=== PATIENT | female | born 1935 | race Caucasian/White ===

== ENCOUNTER 2021-08-03 13:20 | Emergency (ER) | payer MEDICARE, SELFPAY ==
[2021-08-03 14:36] VITALS: BP 149/71; PULSE 63; RESP 16; TEMP 36.7; O2SAT 100
--- NOTE | 2021-08-03 15:47 | ED.URI ---
HPI - URI/Sore Throat General Chief Complaint: Upper Respiratory Infection Stated Complaint: sob Time Seen by Provider: 08/03/21 15:47 Source: patient and RN notes reviewed Mode of arrival: ambulatory Limitations: no limitations History of Present Illness HPI Narrative: 86-year-old female presents concern for cough, shortness of breath, wheezing. Caregiver reports symptoms worsen when she is around animals. Reports history of similar problems in the past. Denies current shortness of breath. Denies fever, bodies, chills, sweats. Denies any at home intervention. MD elicited complaint: cough Related Data Allergies Allergy/AdvReac Type Severity Reaction Status Date / Time No Known Allergies Allergy Verified 08/03/21 14:47 Review of Systems Review of Systems: CONSTITUTIONAL: Denies malaise, chills, sweats, or fever. EYES: Denies visual changes, redness, or discharge. ENT: Reports rhinorrhea, congestion. Denies sinus pain, otalgia and sore throat. CARDIOVASCULAR: Denies chest pain, palpitations, or edema. RESPIRATORY: Reports cough, occasional wheezing and dyspnea. GASTROINTESTINAL: Denies abdominal pain, nausea, vomiting, diarrhea SKIN: Denies rash or itching. MUSCULOSKELETAL: Denies myalgia. NEUROLOGIC: Denies headache. All systems reviewed & are unremarkable except as noted in HPI and below PMFSH Comments At time of signature, agree with nursing past medical, surgical, social and family history. There is no relevant family history pertinent to the presenting complaint Exam Narrative: GENERAL: Well-appearing, well-nourished, and in no acute distress. HEAD: Normocephalic EYES: PERRLA, conjunctivae clear ENT: Nares clear, clear discharge. Mucous membranes moist. TM pearly thompson with dull light reflex bilaterally; no tragal tenderness. Oropharynx not erythematous without lesions. Tonsils not enlarged and without exudate, no drooling, no hoarseness, no trismus, uvula midline. NECK: Supple. No lymphadenopathy CHEST: Mild scattered rhonchi, otherwise clear to auscultation, breath sounds equal. No wheezing, rales, or stridor. No respiratory distress, speaks in full sentences. Cough noted HEART: Regular rate and rhythm. No murmur heard. SKIN: Warm, dry, no rash. NEURO: Alert and oriented x3. PSYCH: Normal mood and affect Course Course Emergency Course: Patient is aware of diagnosis, understands and agrees to treatment plan. Anticipatory guidance given. Patient agrees to follow-up as directed and is aware of reasons to seek care at the emergency department. Portions of this record may have been created with voice recognition software Vital Signs Vital signs: Vital Signs Temperature 98.1 F 08/03/21 14:36 Pulse Rate 63 08/03/21 14:36 Respiratory Rate 16 08/03/21 14:36 Blood Pressure 149/71 H 08/03/21 14:36 Pulse Oximetry 100 08/03/21 14:36 Temperature 98.1 F 08/03/21 14:36 Pulse Rate 63 08/03/21 14:36 Respiratory Rate 16 08/03/21 14:36 Blood Pressure 149/71 H 08/03/21 14:36 Pulse Oximetry 100 08/03/21 14:36 Reviewed. MDM - URI/Sore Throat MDM Narrative Medical decision making narrative: Differential diagnosis considered: Villa virus, strep pharyngitis, allergic rhinitis, upper respiratory tract infection, sinusitis, rhinosinusitis, nasopharyngitis. viral pharyngitis, otitis media, otitis externa, pneumonia, bronchitis, viral cough syndrome, viral syndrome, and influenza. Exam findings show no acute concerns or changes; patient is non-toxic appearing and is in no distress. Patient is appropriate for outpatient treatment and follow-up. Lab Data Attestation: I reviewed the patient's lab results. Critical Care Time Critical Care Time Critical Care Time: No Discharge Plan Discharge Clinical Impression: Upper respiratory infection with cough and congestion Patient Disposition: Home, Self-Care Condition: Stable Instructions: Antibiotic Form Additional Instructions: Recommend a
== END 2021-08-03 15:58 | disposition home or self-care (01) ==
PROVIDERS: Emergency Provider Nurse Practitioner
DX: J06.9 Acute upper respiratory infection, unspecified (principal); R05.9 Cough, unspecified; E78.00 Pure hypercholesterolemia, unspecified
CPT/HCPCS: 99213; G0463

== ENCOUNTER 2022-03-08 14:56 | Outpatient (CLI) | payer MEDICARE, SELFPAY ==
[2022-03-08 19:01] LABS: Basophils Absolute Auto 0.1 K/mm3 (0.0-0.1); Basophils Percent Auto 0.9 % (0.2-1.2); Eosinophils Absolute Auto 0.3 K/mm3 (0-0.3); Eosinophils Percent Auto 4.2 % (0-4.4); Hemoglobin 13.4 g/dL (12.0-15.0); Immature Granulocyte Absolute 0.02 K/mm3 (0.00-0.031); Immature Granulocyte Percent A 0.3 % (0-0.5); Lymphocytes Absolute Auto 2.04 K/mm3 (0.9-3.2); Lymphocytes Percent Auto 31.8 % (18.3-44.2); Mean Corpuscular HGB Conc 32.7 g/dl (32-36); Mean Corpuscular Hemoglobin 31.1 pg (26-34); Mean Corpuscular Volume 95.1 fl (80-100); Mean Platelet Volume 9.7 fl (7.4-10.4); Monocytes Absolute Auto 0.5 K/mm3 (0.1-0.6); Monocytes Percent Auto 7.6 % (2.6-8.5); Neutrophils Absolute Auto 3.5 K/mm3 (1.3-6.7); Neutrophils Percent Auto 55.2 % (45.5-73.1); Platelet Count Result 387 k/mm3 (150-375); Red Blood Count 4.31 M/mm3 (4.2-5.4); Red Cell Distribution Width 13.4 % (11.5-14.5); White Blood Count 6.4 K/mm3 (4.5-10.0)
[2022-03-08 19:40] LABS: Alanine Aminotransferase 11 U/L (6-35); Albumin Level 4.2 g/dL (3.5-5.1); Alkaline Phosphatase 65 U/L (38-126); Anion Gap 9 mmol/L (8-16); Aspartate Amino Transferase 24 U/L (14-36); Bilirubin,Total 1.2 mg/dL (0.2-1.3); Blood Urea Nitrogen 14 mg/dL (7-17); Calcium 10.1 mg/dL (8.4-10.2); Carbon Dioxide 29 mmol/L (22-30); Chloride 101 mmol/L (98-107); Cholesterol 195 mg/dL (0-200); Estimated Glomerular Filt Rate 53; Glucose 122 mg/dL (65-110); HDL Direct 48 mg/dL; Sodium 139 mmol/L (137-145); Triglycerides 149 mg/dL (<150)
[2022-03-08 20:03] LABS: Free T4 Free Thyroxine 1.17 ng/mL (0.78-2.19); Vitamin D 25 Hydroxy 35.2 ng/mL
[2022-03-08 20:06] LABS: LDL Cholesterol Direct 101 mg/dL
== END 2022-03-08 14:57 | disposition home or self-care (01) ==
PROVIDERS: PCP Family Medicine; Visit Provider Family Medicine
DX: R41.3 Other amnesia (principal); Z13.220 Encounter for screening for lipoid disorders; E55.9 Vitamin D deficiency, unspecified; R73.9 Hyperglycemia, unspecified
CPT/HCPCS: 36415; 80053; 80061; 82306; 82607; 83036; 84439; 84443; 85025

== ENCOUNTER 2022-03-19 14:25 | Outpatient (CLI) | payer MEDICARE, SELFPAY ==
--- NOTE | ~2022-03-19 | MR_ITS ---
EXAMINATION: MR brain/brain stem wo/w con DATE: 03/19/2022 15:30 INDICATION: Memory loss. Cognitive impairment. TECHNIQUE: Magnetic resonance imaging (MRI) of the brain and brainstem was performed without and with 12 mL MultiHance intravenous contrast. COMPARISON: None. FINDINGS: There are small foci of old hemorrhage in right frontal lobe and right occipital lobe. Ther e are scattered areas of nonspecific increased T2-weighted signal intensity in the cerebral white mat ter, which is within normal limits for the patient's age. There is no acute ischemic infarct or abnor mal mass lesion. The ventricles are normal in size. The orbits are normal. The paranasal sinuses are clear. There is a trace right mastoid effusion. IMPRESSION: 1. Small foci of old hemorrhage in right frontal lobe and right occipital lobe, which is nonspecific, but may be seen with amyloid angiopathy. Reviewed, dictated and finalized at location A.
== END 2022-03-19 14:26 | disposition home or self-care (01) ==
PROVIDERS: PCP Family Medicine; Visit Provider Family Medicine
DX: R41.89 Other symptoms and signs involving cognitive functions and awareness (principal); R93.0 Abnormal findings on diagnostic imaging of skull and head, not elsewhere classified
CPT/HCPCS: 70553; A9577

== ENCOUNTER 2022-05-10 15:59 | Outpatient (CLI) | payer MEDICARE, SELFPAY ==
[2022-05-10 19:06] LABS: Basophils Percent Auto 0.6 % (0.2-1.2); Eosinophils Absolute Auto 0.3 K/mm3 (0-0.3); Hematocrit 36.7 % (37.0-47.0); Immature Granulocyte Absolute 0.02 K/mm3 (0.00-0.031); Immature Granulocyte Percent A 0.3 % (0-0.5); Lymphocytes Absolute Auto 2.01 K/mm3 (0.9-3.2); Lymphocytes Percent Auto 30.6 % (18.3-44.2); Mean Corpuscular HGB Conc 32.7 g/dl (32-36); Mean Corpuscular Hemoglobin 31.3 pg (26-34); Mean Corpuscular Volume 95.8 fl (80-100); Monocytes Absolute Auto 0.5 K/mm3 (0.1-0.6); Neutrophils Absolute Auto 3.8 K/mm3 (1.3-6.7); Neutrophils Percent Auto 57.5 % (45.5-73.1); Platelet Count Result 479 k/mm3 (150-375); Red Blood Count 3.83 M/mm3 (4.2-5.4); White Blood Count 6.6 K/mm3 (4.5-10.0)
[2022-05-10 20:23] LABS: Alanine Aminotransferase 23 U/L (6-35); Albumin Level 3.9 g/dL (3.5-5.1); Alkaline Phosphatase 123 U/L (38-126); Anion Gap 10 mmol/L (8-16); Aspartate Amino Transferase 44 U/L (14-36); Bilirubin,Total 0.5 mg/dL (0.2-1.3); Blood Urea Nitrogen 14 mg/dL (7-17); Carbon Dioxide 29 mmol/L (22-30); Chloride 102 mmol/L (98-107); Estimated Glomerular Filt Rate 53; Glucose 111 mg/dL (65-110); Sodium 141 mmol/L (137-145)
== END 2022-05-10 16:00 | disposition home or self-care (01) ==
PROVIDERS: PCP Family Medicine; Visit Provider Family Medicine
DX: R50.9 Fever, unspecified (principal)
CPT/HCPCS: 36415; 80053; 85025

== ENCOUNTER 2022-05-14 15:18 | Outpatient (NON) | payer MEDICARE, SELFPAY ==
[2022-05-14 19:10] LABS: Add Urine Microscopic? YES; Amorphous Sediment Urine Few; Appearance Urine Turbid (Clear); Bacteria Urine Trace /hpf; Bilirubin Urine Negative (Negative); Blood Urine Negative (Negative); Color Urine Yellow (Yellow); Glucose Urine UA Negative (Negative); Ketones Urine Negative (Negative); Leukocyte Esterase Ur Negative LEU/UL (NEGATIVE); Mucus Urine Rare /lpf; Nitrate Urine Negative (Negative); Protein Urine 1+ mg/dL (Negative); Specific Grav Ur 1.011 (1.001-1.035); Squamous Epithelial Cell Urine Rare /hpf (Few); Urobilinogen Urine Negative mg/dL (<2.0); WBC Urine 0-3 /hpf (0-3)
== END 2022-05-14 15:19 | disposition home or self-care (01) ==
PROVIDERS: PCP Family Medicine; Visit Provider Family Medicine
DX: R50.9 Fever, unspecified (principal)
CPT/HCPCS: 81001

== ENCOUNTER 2022-11-09 17:29 | Emergency (ER) | payer MEDICARE, SELFPAY ==
[2022-11-09 17:39] VITALS: BP 180/73; PULSE 56; RESP 16; TEMP 36.4; O2SAT 100
--- NOTE | 2022-11-09 17:47 | ED.URI ---
HPI - URI/Sore Throat General Chief Complaint: Upper Respiratory Infection Stated Complaint: SORE THROAT/SWOLLEN LYMPH NODES Time Seen by Provider: 11/09/22 17:47 Source: patient Mode of arrival: ambulatory Limitations: no limitations History of Present Illness HPI Narrative: 87 yo F presents with nephew with c/o nasal congestion, sinus pressure, sore throat, mild cough. Nephew reports that pt has chronic sinusitis. Uses flonase and an OTC antihistamine. Pt stating cant breathe through my nose today . Also c/o sore throat. afebrile. Well appearing and talkative. hx of dementia. A&O x 2 to 3. Neg home covid test. Did teledoc visit and teledoc felt pt needed a strep test. All systems reviewed and negative except as noted above. Related Data Allergies Allergy/AdvReac Type Severity Reaction Status Date / Time No Known Allergies Allergy Verified 11/09/22 17:36 Review of Systems Review of Systems: CONSTITUTIONAL: Denies fever, chills, or sweats. EYES: Denies visual changes, redness, or discharge. ENT: Reports rhinorrhea, congestion, sore throat. Denies otalgia. CARDIOVASCULAR: Denies chest pain, palpitations, or edema. RESPIRATORY: Reports cough. Denies dyspnea. GASTROINTESTINAL: Denies abdominal pain, nausea, vomiting, or diarrhea. GENITOURINARY: Denies dysuria or hematuria. SKIN: Denies rash or itching. MUSCULOSKELETAL: Denies back pain, joint pain, or myalgia. NEUROLOGIC: Denies headache, numbness, or weakness. PSYCHIATRIC: Denies anxiety or depression. All other systems reviewed are negative, except as documented in HPI. [facility] Surgical History Surgical History History of cholecystectomy Family History Family History Mother Cancer of esophagus Stomach cancer Social History Social History Smoking status: Never smoker Alcohol intake: never Substance use: never Living arrangements: with friend(s) Gender identity (if verbalized by the patient): Female Comments At time of signature, agree with nursing past medical, surgical, social and family history. There is no relevant family history pertinent to the presenting complaint. Exam Narrative: GENERAL: This is a well-nourished, well-developed patient, in no apparent distress. HEAD: normocephalic, atraumatic. EYES: PERRL. Sclera clear/white. Vision is grossly intact. EARS: External ears normal, auditory canals clear and without drainage, TMs normal without perforation. Hearing grossly intact. NOSE: External nose normal with clear nasal drainage, mild congestion. Bilateral maxillary sinus tenderness on palpation. THROAT: Mucous membranes moist, mild erythema to posterior pharynx. No swelling or exudates. NECK: Neck supple, non-tender without lymphadenopathy, masses or thyromegaly. CARDIOVASCULAR: Regular rate and rhythm without murmurs, gallops, or rubs. RESPIRATORY: Clear to auscultation. Breath sounds equal bilaterally. No wheezes, rales, or rhonchi. SKIN: warm, Dry, intact with no suspicious lesions or rash, good texture and turgor. NEURO: awake, alert, and oriented to person, place and time. There were no obvious focal neurologic abnormalities. EXTREMITIES: No joint tenderness, effusion, or edema noted. Course Course Level of Care: Express Care Visit Vital Signs Vital signs: Vital Signs Temperature 36.4 C L 11/09/22 17:39 Pulse Rate 56 L 11/09/22 17:39 Respiratory Rate 16 11/09/22 17:39 Blood Pressure 180/73 H 11/09/22 17:39 Pulse Oximetry 100 11/09/22 17:39 Temperature 36.4 C L 11/09/22 17:39 Pulse Rate 56 L 11/09/22 17:39 Respiratory Rate 16 11/09/22 17:39 Blood Pressure 180/73 H 11/09/22 17:39 Pulse Oximetry 100 11/09/22 17:39 Reviewed MDM - URI/Sore Throat MDM Narrative Medical decision making narrative: Patient is aware of diagn
== END 2022-11-09 18:13 | disposition home or self-care (01) ==
PROVIDERS: Emergency Provider Nurse Practitioner Family
DX: J01.90 Acute sinusitis, unspecified (principal); B96.89 Other specified bacterial agents as the cause of diseases classified elsewhere
CPT/HCPCS: 87081; 87880; 99213; G0463

== ENCOUNTER 2023-11-11 12:23 | Emergency (ER) | payer MEDICARE, SELFPAY ==
--- NOTE | ~2023-11-11 | XR_ITS ---
Clinical Indication: Cough PA and lateral views of the chest: Comparison: None Findings: The lungs are clear, without evidence of focal consolidation or pleural effusion. Cardiome diastinal silhouette is within normal limits. Bones and soft tissues are unremarkable. Impression: Normal chest. Reviewed, dictated and finalized at location . Impression: Normal chest.
[2023-11-11 12:27] VITALS: BP 166/71; PULSE 64; RESP 16; TEMP 37.3; O2SAT 97
--- NOTE | 2023-11-11 12:33 | ED.URI ---
HPI - URI/Sore Throat General Chief Complaint: Upper Respiratory Infection Stated Complaint: Sore Throat/Congestion Time Seen by Provider: 11/11/23 12:33 Source: patient, RN notes reviewed and old records reviewed Mode of arrival: ambulatory Limitations: no limitations History of Present Illness HPI Narrative: 88-year-old female Express Care for complaint of non productive cough for nearly 2 weeks. patient presents with her grandson. Grandson endorses a patient history of memory issues. During exam, patient is a poor historian. Patient and grandson denie fever, shortness breath, chest pain. Patient denies ear pain, headache or any other complaints at time of exam. Patient able to speak in full sentences. Patient able to tolerate fluids by mouth. No signs of distress. Related Data Allergies Allergy/AdvReac Type Severity Reaction Status Date / Time No Known Allergies Allergy Verified 11/11/23 12:29 Review of Systems Review of Systems: All systems reviewed & are unremarkable except as noted in HPI and below Constitutional: Constitutional: Reports as per HPI and Denies fever(s) Eyes: Eyes: Reports no additional eye complaints ENT: Reports as per HPI, Denies otalgia, Denies headache(s) and Denies sore throat Cardiovascular: Cardiovascular: Reports no additional cardiovascular complaints, Denies chest pain and Denies dyspnea Respiratory: Respiratory: Reports no additional respiratory complaints, Reports cough ( Nonproductive per patient) and Denies dyspnea Musculoskeletal: Musculoskeletal: Reports no additional musculoskeletal complaints Neurologic: Reports system reviewed and no additional complaints, except as documented Psychiatric: Psychiatric: Reports no additional psychiatric complaints [facility] Surgical History Surgical History History of cholecystectomy Family History Family History Mother Cancer of esophagus Stomach cancer Social History Social History Smoking status: Never smoker Alcohol intake: never Substance use: never Lack of Transportation: No Lack of Food: Never True Current Housing: I Have Housing Concerned About Future Housing: No Difficulty Paying Gas/Electric Bills: No Difficulty Paying for Meds: No Currently Unemployed: No Education: High School Diploma/GED Difficulty w/ Childcare or Family Care: No Living arrangements: with friend(s) Gender identity (if verbalized by the patient): Female Comments At the time of my signature, I reviewed and agree with the nursing past medical, surgical, social, and family history. There is no relevant family history pertinent to the patient complaint. Exam Const: General: cooperative, healthy appearing, comfortable, no acute distress, alert and well nourished Nutritional Appearance: well nourished Orientation/consciousness: patient oriented x3 Limitations: no limitations HENMT: Head: normal to inspection Ears: Abnormal EAC present cerumen impaction bilateral, external ear abnormal and unable to visualize TM bilaterally Face/Nose/Sinus: Normal external nose present, Normal nares present, normal facial exam, No erythema and No edema Face and sinus: normal facial exam, no erythema and no edema Mouth: Yes Normal oral and palatal mucosa present Throat: tonsils normal, uvula midline, postnasal drainage and no uvular edema Eyes: General: appearance normal, both eyes and all related structures Neck: Neck: normal visual inspection, full ROM and no meningeal signs Lymphatic: no lymphadenopathy noted and no lymphedema noted Chest: Chest palpation & inspection: normal inspection of the chest Resp: Effort & Inspection: normal respiratory effort and able to speak in complete sentences Auscultation: crackles diffuse Other: chest x-ray clear Cardio: J
== END 2023-11-11 13:22 | disposition home or self-care (01) ==
PROVIDERS: Emergency Provider Nurse Practitioner Family
DX: J06.9 Acute upper respiratory infection, unspecified (principal); H61.23 Impacted cerumen, bilateral
CPT/HCPCS: 71046; 99213; G0463

== ENCOUNTER 2024-06-05 14:11 | Outpatient (CLI) | payer MEDICARE, SELFPAY ==
[2024-06-05 14:38] LABS: Basophils Percent Auto 0.4 % (0.2-1.2); Eosinophils Absolute Auto 0.2 K/mm3 (0-0.3); Hematocrit 37.7 % (37.0-47.0); Hemoglobin 12.7 g/dL (12.0-15.0); Lymphocytes Absolute Auto 1.86 K/mm3 (0.9-3.2); Mean Corpuscular HGB Conc 33.7 g/dl (32-36); Mean Corpuscular Hemoglobin 32.4 pg (26-34); Mean Corpuscular Volume 96.2 fl (80-100); Monocytes Absolute Auto 0.3 K/mm3 (0.1-0.6); Monocytes Percent Auto 6.4 % (2.6-8.5); Neutrophils Absolute Auto 2.9 K/mm3 (1.3-6.7); Neutrophils Percent Auto 55.2 % (45.5-73.1); Platelet Count Result 259 k/mm3 (150-375); Red Blood Count 3.92 M/mm3 (4.2-5.4); Red Cell Distribution Width 13.2 % (11.5-14.5); White Blood Count 5.3 K/mm3 (4.5-10.0)
[2024-06-05 15:02] LABS: Alanine Aminotransferase 12 U/L (6-35); Albumin Level 4.1 g/dL (3.5-5.1); Alkaline Phosphatase 52 U/L (38-126); Anion Gap 8 mmol/L (4-12); Aspartate Amino Transferase 27 U/L (14-36); Bilirubin,Total 1.3 mg/dL (0.2-1.3); Blood Urea Nitrogen 15 mg/dL (7-17); Calcium 10.1 mg/dL (8.4-10.2); Carbon Dioxide 27 mmol/L (22-30); Chloride 105 mmol/L (98-107); Cholesterol 183 mg/dL (0-200); Estimated Glomerular Filt Rate 52; Glucose 114 mg/dL (65-110); HDL Direct 56 mg/dL; Potassium 4.2 mmol/L (3.4-5.0); Sodium 140 mmol/L (137-145); Triglycerides 84 mg/dL (<150)
[2024-06-05 15:13] LABS: LDL Cholesterol Direct 90 mg/dL
[2024-06-05 15:15] LABS: Free T4 Free Thyroxine 1.14 ng/mL (0.78-2.19)
[2024-06-05 15:19] LABS: Hemoglobin A1C 5.2 % (<5.7)
== END 2024-06-05 14:12 | disposition home or self-care (01) ==
LOC: ANHLAB 14:17
PROVIDERS: PCP Family Medicine; Visit Provider Family Medicine
DX: E55.9 Vitamin D deficiency, unspecified (principal); E78.5 Hyperlipidemia, unspecified; R41.82 Altered mental status, unspecified; R53.83 Other fatigue; R73.9 Hyperglycemia, unspecified; Z13.220 Encounter for screening for lipoid disorders; R41.89 Other symptoms and signs involving cognitive functions and awareness
CPT/HCPCS: 36415; 80053; 80061; 82306; 82607; 83036; 84439; 84443; 85025

== ENCOUNTER 2025-06-08 12:37 | Emergency (ER) | payer MEDICARE, SELFPAY ==
[2025-06-08 12:50] VITALS: BP 137/71; PULSE 65; RESP 16; TEMP 36.6; O2SAT 97
--- NOTE | 2025-06-08 12:57 | ED.FALL ---
HPI - Fall General Chief Complaint: Fall Stated Complaint: Face Bruised L side Time Seen by Provider: 06/08/25 13:00 Source: patient Mode of arrival: ambulatory Limitations: no limitations History of Present Illness HPI Narrative: Marija is an 89-year-old female patient presenting to the clinic today with complaints of left-sided facial bruising. Family remember reports patient has history of dementia. Patient is currently at her baseline. States that she fell sometime over the weekend. Fall was unwitnessed. Unknown if she lost consciousness. Has bruising/swelling to the left side of her face. Patient denies any neck pain. Related Data Allergies Allergy/AdvReac Type Severity Reaction Status Date / Time No Known Allergies Allergy Verified 06/08/25 12:57 Review of Systems Review of Systems: Pertinent positives per HPI. Patient denies any fever, chills, rash, headache, visual changes, dizziness, cough, runny nose, sore throat, shortness of breath, chest pain, palpitations, nausea, vomiting, diarrhea, constipation, abdominal pain, or any urinary issues. PMFSH Surgical History Surgical History History of cholecystectomy Family History Family History Mother Cancer of esophagus Stomach cancer Social History Social History Smoking status: Never smoker Alcohol intake: never Substance use: never Lack of Transportation: No Lack of Food: Never True Current Housing: I Have Housing Concerned About Future Housing: No Difficulty Paying Gas/Electric Bills: No Difficulty Paying for Meds: No Currently Unemployed: No Education: High School Diploma/GED Difficulty w/ Childcare or Family Care: No Living arrangements: with friend(s) Gender identity (if verbalized by the patient): Female Comments At the time of my signature, I reviewed and agree with the nursing past medical, surgical, social, and family history. There is no relevant family history pertinent to the patient complaint. Exam Narrative: General: Well-developed, well nourished, in no apparent distress Head: Normocephalic, ecchymosis over the left periorbital area Eyes: Pupils equally round and reactive to light bilaterally, EOM intact, sclera and conjunctive clear, no discharge, lids normal Ears: TMs intact and clear, ear canals clear, no drainage, grossly hearing normal. Nose: Nares patent, no discharge, no inflammation, no sinus tenderness. Mouth: Oropharynx without lesions or masses, good dentition, MMM. Tongue midline, even rise and fall of uvula Neck: Supple, trachea midline, no enlargement of anterior or posterior cervical nodes, no thyroid masses or goiter palpable. Cardio: Regular rate and rhythm, s1 and s2 normal, no murmur appreciated. Resp: Clear to auscultation bilaterally anteriorly and posteriorly, no rhonchi, rales, wheezing or rubs Musculoskeletal: No deformity, non-tender to palpation, grossly normal range of motion, muscle strength strong and equal, peripheral pulse strong, no edema, no cyanosis, normal gait and station Neuro: Alert with normal speech, no focal deficits. Course Course Emergency Course: Portions of this record may have been created with voice recognition software. Level of Care: Express Care Visit Vital Signs Vital signs: Vital Signs Temperature 36.6 C 06/08/25 12:50 Pulse Rate 65 06/08/25 12:50 Respiratory Rate 16 06/08/25 12:50 Blood Pressure 137/71 06/08/25 12:50 Pulse Oximetry 97 06/08/25 12:50 Temperature 36.6 C 06/08/25 12:50 Pulse Rate 65 06/08/25 12:50 Respiratory Rate 16 06/08/25 12:50 Blood Pressure 137/71 06/08/25 12:50 Pulse Oximetry 97 06/08/25 12:50 Vital signs reviewed Transfer Transfered to: [facility] Transportation: Other (Private car) Transfer rationale: Head injury/dementia/periorbital ecchymosis Accepting physician: Andrew Transfer comments: Private car MDM - Fall MDM Narrative Medical decision making narrative: At the time of visit patient is resting comfortably on the exam table. Patient appears to be nontoxic. complaints of left-sided facial bruising. Family remember reports patient has history of dementia. Patient is currently at her baseline. States that she fell sometime over the weekend. Fall was unwitnessed. Unknown if she lost consciousness. Has bruising/swelling to the left side of her face. Patient denies any neck pain. Plan: Patient had head injury with periorbital ecchymosis. Recommend transfer to the ER for further evaluation-I feel that it is appropriate for patient to have CT head and facial bones as she is demented and unable to give a history. Patient's family member would like to go to [facility]. Contacted Deborah CUNNINGHAM at [facility] she accepts patient for transfer. Differential Diagnosis Differential diagnosis: Likely concussion with loss of consciousness, concussion without loss of consciousness and other (Orbital fracture, brain bleed, cervical fracture) Discharge Plan Discharge Clinical Impression: Head injury, Traumatic periorbital ecchymosis of left eye Patient Disposition: Acute Care Hospital Condition: Stable Patient Language: Zimbabwean Prescriptions: No Action donepezil 10 mg tablet 10 mg PO QHS Qty: 90 1RF losartan 50 mg tablet 50 mg PO DAILY Qty: 90 1RF Follow-up/Referrals: Pau Stinson DO [Primary Care Provider, [facility]] Time of Disposition: 13:25 Quality NIHSS Nursing Documentation ED NIHSS nursing documentation: reviewed/agree
== END 2025-06-08 13:20 | disposition short-term general hospital (02) ==
LOC: EXPGOSH 12:38
PROVIDERS: Emergency Provider Nurse Practitioner Family; PCP Family Medicine
DX: S09.90XA Unspecified injury of head, initial encounter (principal); S05.12XA Contusion of eyeball and orbital tissues, left eye, initial encounter; W19.XXXA Unspecified fall, initial encounter; F03.90 Unspecified dementia, unspecified severity, without behavioral disturbance, psychotic disturbance, mood disturbance, and anxiety
CPT/HCPCS: 99212; G0463

== ENCOUNTER 2025-06-08 13:39 | Emergency (ER) | payer MEDICARE, SELFPAY ==
--- NOTE | ~2025-06-08 | CT_ITS ---
CT HEAD NON-CONTRAST CT C-SPINE Clinical History: unwitnessed fall Comparison: Brain MRI 03/19/2022 Technique: Unenhanced axial images skull base to vertex. Coronal, sagittal reformats. Axial images thoracic inlet to skull base. Sagittal and coronal reformats. CT images acquired with automatic exposure control for dose reduction DLP: 605 mGy-cm Findings: Head: Age-related atrophy. Chronic white matter microvascular ischemic changes. Sulci, ventricles: Unremarkable. No intracerebral hemorrhage. No evidence acute territorial infarct. No mass effect, midline shift, intra-/extra-axial fluid collection. Bony calvarium intact. Visualized paranasal sinuses: Clear. Mastoid air cells: Clear. C-spine: No acute fracture or listhesis. Severe degenerative changes. Prevertebral soft tissues within normal limits. Visualized lung apices: Clear. Visualized thyroid: Unremarkable. No enlarged cervical nodes. IMPRESSION: HEAD: 1. No acute intracranial findings. C-SPINE: 1. No acute fracture. Reviewed, dictated and finalized at location R. IAC TECH IMPRESSION: HEAD: 1. No acute intracranial findings. C-SPINE: 1. No acute fracture.
[2025-06-08 13:41] VITALS: BP 138/78; PULSE 63; RESP 18; TEMP 36.9; O2SAT 100
--- OUTSIDE RECORDS SUMMARY | 2025-06-08 15:08 | XMS_ITS | Data Portability ---
Author Organization [facility], [employer] Address [address] [facility] [address] [place] [address] Assessment Encounter Date Assessment Date Assessment LastModified by Organization Details LastModified Time 08/31/2019 08/31/2019 New patient presented for admission to the practice. Studies ordered as below. Discussed plan with patient, who expressed understanding . Follow up as noted below. [email or web address] Not available 08/31/2019 15:00:10 03/17/2020 03/17/2020 Patient presented for follow up. Studies ordered as below. Discussed plan with patient/armani roger, who expressed understanding . Follow up as noted below. Patient advised to call back if symptoms do not improve or worsen. Patient agrees with below plan. [email or web address] Not available 03/17/2020 13:03:08 Plan of Treatment Reminders Order Date Submit Date Provider Last Modified By Organization Details Last Modified Time Details Appointments None recorded. Lab microalbum in/creatin ine, mass ratio, urine 2019 020 [email or web address] Not available 0 08:23:39 lipid panel, serum 2019 020 KENNEDI Not available 0 13:13:09 CMP, serum or plasma 2019 020 KENNEDI Not available 0 13:13:08 CK (creatine kinase), total, serum 2019 020 KENNEDI Not available 0 13:13:08 CBC w/ auto diff 2019 020 KENNEDI Not available 0 13:13:07 TSH + free T4, serum 2019 020 [email or web address] Not available 0 10:22:34 T3, free, serum or plasma 2019 020 KENNEDI Not available 0 10:19:38 lipid panel, serum 2019 020 KENNEDI Not available 0 10:19:39 CK (creatine kinase), total, serum 2019 020 KENNEDI Not available 0 10:19:37 magnesium, blood 2019 020 [email or web address] Not available 0 10:22:34 CBC w/ auto diff 2019 020 KENNEDI Not available 0 10:19:36 CMP, serum or plasma 2019 020 KENNEDI Not available 0 10:19:37 microalbum in/creatin ine, mass ratio, urine 2019 020 KENNEDI Not available 0 10:19:40 fecal occult blood, stool 2019 020 [email or web address] Not available 0 10:22:[address] referral 2019 020 [email or web address] Jillian Zheng, [address] [place], [address], 0 15:28:41 gastroente rologist referral 2019 020 [email or web address] [email or web address] Yudy Avalos MD, [address], [place], [address], 0 15:28:40 Procedures cerumen removal (PROC) 2019 020 [place] [facility], [facility], [address] [facility] [address], [place], [address], 0 11:52:16 cerumen removal (PROC) 2019 020 [place] [employer], [facility], [address] , [address], [place], [address], 0 14:27:16 Surgeries None recorded. Imaging MAMMO, screening, bilateral 2019 [email or web address] [facility] ([facility]), [address] , [address], [place], [address], 0 08:45:19 electrocar diogram 2019 [facility], [facility], [address] , [address], [place], [address], 0 14:26:08 bone density [address] [facility] [place] [employer] [facility], [facility], [address] , [address], [place], [address], 0 16:46:17 Medication Orders amlodipine 2.5 mg tablet 2019 [facility]30, [address], [place], [id number], 0 13:55:34 pravastati n 10 mg tablet 2019 [email or web address] [facility] #64855, [address], [place], [id number], 0 14:31:01 cetirizine 10 mg tablet 2019 020 [facility]FACE [facility] #65676, [address], [place], [id number], 0 13:55:34 fluticason e propionate 50 mcg/actuat ion nasal spray,susp ension 2019 [facility]FACE [facility] #50448, [address], [place], [id number], 0 13:55:36 fluticason e propionate 50 mcg/actuat ion nasal spray,susp ension 2019 [facility]FACE [facility] #86760, [address], [place], [id number], 0 15:27:17 cetirizine 10 mg tablet 2019 [facility]FACE [facility] #83329, [address], [place], [id number], 0 15:27:29 amlodipine 2.5 mg tablet 2019 [facility] #15004, [address], [place], [id number], 0 15:27:20 Patient TargetsNo targets recorded. Patient Instructions Encounter Date Encounter Id Patient Instructions Last Modified By Organization Details Last Modified Time 08/31/2019 [id number] earwax blockage: care instructions [email or web address] Not available 08/31/2019 15:27:08 mammogram: about this test [email or web address] Not available 08/31/2019 15:27:08 learning about healthy weight Not available 08/31/2019 15:27:07 03/17/2020 [id number] advance directiv e education [facility] Not available 03/17/2020 13:55:27 Reason for Referral Dental Officer Referral for Screening for malignant neoplasm of colon Referring Physician: Ivet Carrillo, Internal Medicine, Encounter Date: 08/31/2019 [place] Referral for Sc reening for malignant neoplasm of cervix Referring Physician: Ivet Carrillo, Internal Medicine, Encounter Date: 08/31/2019 Results Created Date Observation Date Name Description Value Unit Range Abnormal Flag Note LastModifiedBy Organization Detail LastModifiedTime 08/31/19 20 08/31/2019 CBC w/ auto diff white blood cell count 11.0 thous and/u L 3.5-10 .0 high Not Available [place] [address] [address] [place], [address], 09/01/2019 10:19:36 08/31/19 20 08/31/2019 CBC w/ auto diff red blood cell count 4.4 kb on/uL 3.5-5. 5 Not Available [place] [address] [address] [place], [address], 09/01/2019 10:19:36 08/31/19 20 08/31/2019 CBC w/ auto diff hemoglobin 13.6 g/dL 11.5-1 6.5 Not Available [place] [address] [address] [place], [address], 09/01/2019 10:19:36 08/31/19 20 08/31/2019 CBC w/ auto diff hematocrit 43 % 35-55 Not Available [place] [address] [address] [place], [address], 09/01/2019 10:19:36 08/31/19 20 08/31/2019 CBC w/ auto diff MCH 31 pg 25-35 Not Available [place] [address] [address] [place], [address], 09/01/2019 10:19:36 08/31/19 20 08/31/2019 CBC w/ auto diff MCHC 32 g/dL 31-38 Not Available [facility] [place] [address] [address] [place], [address], 09/01/2019 10:19:36 08/31/19 20 08/31/2019 CBC w/ auto diff MCV 98 fL 75-100 Not Available [facility] [place] [address] [address] [place], [address], 09/01/2019 10:19:36 08/31/19 20 08/31/2019 CBC w/ auto diff RDW-CV 13 % 11-15 Not Available [facility] [place] [address] [address] [place], [address], 09/01/2019 10:19:36 08/31/19 20 08/31/2019 CBC w/ auto diff neutrophils% 70.3 % Not Available [place] [address] [address] [place], [address], 09/01/2019 10:19:36 08/31/19 20 08/31/2019 CBC w/ auto diff lymphocytes% 19.9 % Not Available [place] [address] [address] [place], [address], 09/01/2019 10:19:36 08/31/19 20 08/31/2019 CBC w/ auto diff monocytes% 6.9 % Not Available [place] [address] [address] [place], [address], 09/01/2019 10:19:36 08/31/19 20 08/31/2019 CBC w/ auto diff eosinophil % 2.2 % 0.0-7. 0 Not Available [place] [address] [address] [place], [address], 09/01/2019 10:19:36 08/31/19 20 08/31/2019 CBC w/ auto diff basophil % 0.4 % 0.0-3. 0 Not Available [place] [address] [address] [place], [address], 09/01/2019 10:19:36 08/31/19 20 08/31/2019 CBC w/ auto diff absolute neutrophils 7.7 cells /uL 1.5-7. 8 Not Available [place] [address] [address] [place], [address], 09/01/2019 10:19:36 08/31/19 20 08/31/2019 CBC w/ auto diff absolute lymphocytes 2.19 cells /uL 0.85-3 .90 Not Available [place] [address] [address] [place], [address], 09/01/2019 10:19:36 08/31/19 20 08/31/2019 CBC w/ auto diff absolute monocytes 0.8 cells /uL 0.2-1. 0 Not Available [place] [address] [place], [address], 09/01/2019 10:19:36 08/31/19 20 08/31/2019 CBC w/ auto diff absolute eosinophils 0.2 cells /uL 0.0-0. 5 Not Available [place] [address] [place], [address], 09/01/2019 10:19:36 08/31/19 20 08/31/2019 CBC w/ auto diff absolute basophils 0.0 cells /uL 0.0-0. 2 Not Available [place] [address] [place], [address], 09/01/2019 10:19:36 08/31/19 20 08/31/2019 CBC w/ auto diff platelet count 366 thous and/u L 100-40 0 Testi ng Perfo rmed at: COUNTS INCLUDE 234 BEDS AT [facility] [facility], [address] [place] [address] Phone : [phone] Fax: Not Available [place] [address] [place], [address], 09/01/2019 10:19:36 08/31/19 20 08/31/2019 CMP, serum or plasm a glucose 97 mg/dL 74-99 Not Available [place] [address] [place], [address], 09/01/2019 10:19:37 08/31/19 20 08/31/2019 CMP, serum or plasm a urea nitrogen, blood (BUN) 9 mg/dL 8-23 Not Available [place] [address] [place], [address], 09/01/2019 10:19:37 08/31/19 20 08/31/2019 CMP, serum or plasm a total bilirubin 0.7 mg/dL 0.0-1. 2 Not Available [facility] [place] [address] [place], [address], 09/01/2019 10:19:37 08/31/19 20 08/31/2019 CMP, serum or plasm a total protein 7.3 g/dL 6.6-8. 7 Not Available [facility] [place] [address] [place], [address], 09/01/2019 10:19:37 08/31/19 20 08/31/2019 CMP, serum or plasm a alanine aminotransfe rase (ALT) 13 U/L 0-33 Not Available [facility] [place] [address] [place], [address], 09/01/2019 10:19:37 08/31/19 20 08/31/2019 CMP, serum or plasm a alkaline phosphatase 66 U/L 40-130 Not Available [facility] [place] [address] [place], [address], 09/01/2019 10:19:37 08/31/19 20 08/31/2019 CMP, serum or plasm a aspartate aminotransfe rase (AST) 23 U/L 0-32 Not Available [facility] [place] [address] [address], [place], [address], 09/01/2019 10:19:37 08/31/19 20 08/31/2019 CMP, serum or plasm a calcium 9.7 mg/dL 8.6-10 .2 Not Available [facility] [place] [address] [place], [address], 09/01/2019 10:19:37 08/31/19 20 08/31/2019 CMP, serum or plasm a albumin 4.4 g/dL 3.5-5. 2 Not Available [facility] [place] [address] [place], [address], 09/01/2019 10:19:37 08/31/19 20 08/31/2019 CMP, serum or plasm a CO2 26 mmol/ L 23-31 Not Available [facility] [place] [address] [place], [address], 09/01/2019 10:19:37 08/31/19 20 08/31/2019 CMP, serum or plasm a creatinine, serum 0.8 mg/dL 0.5-0. 9 Not Available [facility] [place] [address] [address] [place], [address], 09/01/2019 10:19:37 08/31/19 20 08/31/2019 CMP, serum or plasm a sodium, serum 143 mmol/ L 136-14 5 Not Available [facility] [place] [address] [address] [place], [address], 09/01/2019 10:19:37 08/31/19 20 08/31/2019 CMP, serum or plasm a potassium, serum 4.1 mmol/ L 3.5-5. 1 Not Available [facility] [place] [address] [place], [address], 09/01/2019 10:19:37 08/31/19 20 08/31/2019 CMP, serum or plasm a chloride, serum 103 mmol/ L 98-107 Not Available [facility] [place] [address] [address] [place] [place], [address], 09/01/2019 10:19:37 08/31/19 20 08/31/2019 CMP, serum or plasm a eGFR 72 >59 Persi stent reduc tion for 3 month s or more in an eGFR <60 mL/mi n/1.7 3 m2 defin es CKD. Patie nts with eGFR value s>/=6 0 mL/mi n/1.7 3 m2 may also have CKD if evide nce of persi stent protu niuri a is prese nt. Addit ional infor citlalli mercedes may be found at www.k doqi. org. Not Available [facility] [place] [address] [address] [place], [address], 09/01/2019 10:19:37 08/31/19 20 08/31/2019 CK (crea tracie kinas e), total , serum creatine kinase 56 U/L 0-170 Not Available [place] [address] [place], [address], 09/01/2019 10:19:37 08/31/19 20 08/31/2019 T3, free, serum or plasm a FT3 2.6 pg/mL 1.5-4. 1 Not Available [place] [address] [address], [place], [address], 09/01/2019 10:19:38 08/31/19 20 08/31/2019 T4, free, serum FT4 1.23 NG/dL 0.93-1 .70 Not Available [place] [address] [address], [place], [address], 09/01/2019 10:19:38 08/31/19 20 08/31/2019 lipid panel , serum trigylceride s 166 mg/dL 0-150 high Not Available [facility] [place] [address] [address], [place], [address], 09/01/2019 10:19:39 08/31/19 20 08/31/2019 lipid panel , serum cholesterol 187 mg/dL 0-200 Not Available [facility] [place] [address] [address], [place], [address], 09/01/2019 10:19:39 08/31/19 20 08/31/2019 lipid panel , serum uhdl 52 mg/dL 45-65 Not Available [facility] [place] [address] [place], [address], 09/01/2019 10:19:39 08/31/19 20 08/31/2019 lipid panel , serum LDL, calculated 102 mg/dL 0-100 high Not Available [facility] [place] [address] [place], [address], 09/01/2019 10:19:39 08/31/19 20 08/31/2019 lipid panel , serum LDL/HDL ratio 2 mg/dL 0-5 Not Available [place] [address] [place], [address], 09/01/2019 10:19:39 08/31/19 20 08/31/2019 lipid panel , serum VLDL 33.2 mg/dL 5.0-40 .0 Not Available [place] [address] [place], [address], 09/01/2019 10:19:39 08/31/19 20 08/31/2019 lipid panel , serum cholesterol/ HDL ratio 3.60 0.00-5 .00 Not Available [place] [address] [place], [address], 09/01/2019 10:19:39 08/31/19 20 08/31/2019 magne sium, QN, serum or plasm a magnesium 2.0 mg/dL 1.6-2. 4 Not Available [place] [address] [place], [address], 09/01/2019 10:19:39 08/31/19 20 08/31/2019 TSH, serum or plasm a TSH 1.35 ??IU/ mL 0.27-4 .20 Testi ng Perfo rmed at: COUNTS INCLUDE 234 BEDS AT [facility], [place] [id number] [facility], [address] [place] [address] Phone : Fax: Not Available [place] [address] [place], [address], 09/01/2019 10:19:40 08/31/19 20 08/31/2019 micro album in/cr eatin ine, mass ratio , urine urine microalbumin 6 mg/L 0-30 Not Available [place] [address] [place], [address], 09/01/2019 10:19:40 08/31/19 20 08/31/2019 micro album in/cr eatin ine, mass ratio , urine urine creatinine 68.48 Not Available [place] [address] [place], [address], 09/01/2019 10:19:40 08/31/19 20 08/31/2019 micro album in/cr eatin ine, mass ratio , urine urine microalbumin /creatinine ratio 8 mg/g_ creat inine 0-30 Not Available [facility] [place] [address] [place], [address], 09/01/2019 10:19:40 09/01/19 20 09/01/2019 elect rocar diogr am Rate & Rhythm Not Available [address], [place], [address], 08/31/2019 15:01:29 09/01/19 20 09/01/2019 elect rocar diogr am QRS Not Available [place] [address] [place], [place], [address], 08/31/2019 15:01:29 09/01/19 20 09/01/2019 elect rocar diogr am AR Interval Not Available [place] [address] [place], [place], [address], 08/31/2019 15:01:29 09/01/19 20 09/01/2019 elect rocar diogr am QRS Duration Not Available [place] [address] [place], [place], [address], 08/31/2019 15:01:29 09/01/19 20 09/01/2019 elect rocar diogr am QT Interval Not Available [place] [address] [place], [place], [address], 08/31/2019 15:01:29 09/01/19 20 09/01/2019 elect rocar diogr am Change from Previous EKG? Not Available [place] [address] [place], [place], [address], 08/31/2019 15:01:29 09/01/19 20 09/01/2019 damon medina joce Date of Last EKG Not Available [facility], [place] [address], [place], [address], 08/31/2019 15:01:29 09/17/19 20 09/17/2019 bone densi ty Result: Not Available [facility], [place] [address] [facility] [address], [place], [address], 08/31/2019 15:00:37 03/17/20 20 03/17/2020 CBC w/ auto diff white blood cell count 8.9 thous and/u L 3.5-10 .0 Not Available [place] [address] [place], [address], 03/18/2020 13:13:07 03/17/2003/17/2020 CBC w/ auto diff red blood cell count 4.1 kb on/uL 3.5-5. 5 Not Available [place] [address] [place], [address], 03/18/2020 13:13:07 03/17/2003/17/2020 CBC w/ auto diff hemoglobin 13.0 g/dL 11.5-1 6.5 Not Available [place] [address] [place], [address], 03/18/2020 13:13:07 03/17/2003/17/2020 CBC w/ auto diff hematocrit 42 % 35-55 Not Available [facility] [place] [address] [place], [address], 03/18/2020 13:13:07 03/17/2003/17/2020 CBC w/ auto diff MCH 31 pg 25-35 Not Available [place] [address] [place], [address], 03/18/2020 13:13:07 03/17/20 20 03/17/2020 CBC w/ auto diff MCHC 31 g/dL 31-38 Not Available [place] [address] [address] [place], [address], 03/18/2020 13:13:07 03/17/20 20 03/17/2020 CBC w/ auto diff MCV 101 fL 75-100 high Not Available [place] [address] [address] [place], [address], 03/18/2020 13:13:07 03/17/20 20 03/17/2020 CBC w/ auto diff RDW-CV 14 % 11-15 Not Available [place] [address] [address] [place], [address], 03/18/2020 13:13:07 03/17/20 20 03/17/2020 CBC w/ auto diff neutrophils% 70.9 % Not Available [place] [address] [address] [place], [address], 03/18/2020 13:13:07 03/17/20 20 03/17/2020 CBC w/ auto diff lymphocytes% 21.7 % Not Available [place] [address] [address] [place], [address], 03/18/2020 13:13:07 03/17/20 20 03/17/2020 CBC w/ auto diff monocytes% 4.4 % Not Available [place] [address] [address] [place], [address], 03/18/2020 13:13:07 03/17/20 20 03/17/2020 CBC w/ auto diff eosinophil % 2.5 % 0.0-7. 0 Not Available [place] [address] [address] [place], [address], 03/18/2020 13:13:07 03/17/20 20 03/17/2020 CBC w/ auto diff basophil % 0.3 % 0.0-3. 0 Not Available [facility] [place] [address] [place], [address], 03/18/2020 13:13:07 03/17/20 20 03/17/2020 CBC w/ auto diff absolute neutrophils 6.3 cells /uL 1.5-7. 8 Not Available [place] [address] [address] [place], [address], 03/18/2020 13:13:07 03/17/20 20 03/17/2020 CBC w/ auto diff absolute lymphocytes 1.93 cells /uL 0.85-3 .90 Not Available [place] [address] [address] [place], [address], 03/18/2020 13:13:07 03/17/2003/17/2020 CBC w/ auto diff absolute monocytes 0.4 cells /uL 0.2-1. 0 Not Available [place] [address] [address] [place], [address], 03/18/2020 13:13:07 03/17/20 20 03/17/2020 CBC w/ auto diff absolute eosinophils 0.2 cells /uL 0.0-0. 5 Not Available [place] [address] [address] [place], [address], 03/18/2020 13:13:07 03/17/20 20 03/17/2020 CBC w/ auto diff absolute basophils 0.0 cells /uL 0.0-0. 2 Not Available [place] [address] [address] [place], [address], 03/18/2020 13:13:07 03/17/20 20 03/17/2020 CBC w/ auto diff platelet count 363 thous and/u L 100-40 0 Testi noreen Perfo rmed at: COUNTS INCLUDE 234 BEDS AT [facility] [address] [place] [address], [address] [place] [address] Phone : [phone] Fax: Not Available [place] [address] [address] [place], [address], 03/18/2020 13:13:07 03/17/20 20 03/17/2020 CMP, serum or plasm a glucose 68 mg/dL 74-99 low Not Available [facility] [place] [address] [place], [address], 03/18/2020 13:13:08 03/17/20 20 03/17/2020 CMP, serum or plasm a urea nitrogen, blood (BUN) 11 mg/dL 8-23 Not Available [facility] [place] [address] [place], [address], 03/18/2020 13:13:08 03/17/2003/17/2020 CMP, serum or plasm a total bilirubin 0.6 mg/dL 0.0-1. 2 Not Available [facility] [place] [address] [place], [address], 03/18/2020 13:13:08 03/17/2003/17/2020 CMP, serum or plasm a total protein 6.7 g/dL 6.6-8. 7 Not Available [facility] [place] [address] [place], [address], 03/18/2020 13:13:08 03/17/2003/17/2020 CMP, serum or plasm a alanine aminotransfe rase (ALT) 11 U/L 0-33 Not Available [facility] [place] [address] [place], [address], 03/18/2020 13:13:08 03/17/2003/17/2020 CMP, serum or plasm a alkaline phosphatase 59 U/L 40-130 Not Available [facility] [place] [address] [address] [place], [address], 03/18/2020 13:13:08 03/17/2003/17/2020 CMP, serum or plasm a aspartate aminotransfe rase (AST) 19 U/L 0-32 Not Available [facility] [place] [address] [place] [place], [address], 03/18/2020 13:13:08 03/17/20 20 03/17/2020 CMP, serum or plasm a calcium 10.3 mg/dL 8.6-10 .2 high Not Available [facility] [place] [address] [place], [address], 03/18/2020 13:13:08 03/17/2003/17/2020 CMP, serum or plasm a albumin 4.1 g/dL 3.5-5. 2 Not Available [facility] [place] [address] [address] [place], [address], 03/18/2020 13:13:08 03/17/2003/17/2020 CMP, serum or plasm a CO2 28 mmol/ L 23-31 Not Available [facility] [place] [address] [address] [place], [address], 03/18/2020 13:13:08 03/17/2003/17/2020 CMP, serum or plasm a creatinine, serum 0.9 mg/dL 0.5-0. 9 Not Available [facility] [place] [address] [address] [place], [address], 03/18/2020 13:13:08 03/17/2003/17/2020 CMP, serum or plasm a sodium, serum 143 mmol/ L 136-14 5 Not Available [facility] [place] [address] [address] [place], [address], 03/18/2020 13:13:08 03/17/2003/17/2020 CMP, serum or plasm a potassium, serum 4.1 mmol/ L 3.5-5. 1 Not Available [facility] [place] [address] [address] [place], [address], 03/18/2020 13:13:08 03/17/2003/17/2020 CMP, serum or plasm a chloride, serum 105 mmol/ L 98-107 Not Available [facility] [place] [address] [address] [place], [address], 03/18/2020 13:13:08 03/17/20 20 03/17/2020 CMP, serum or plasm a eGFR 66 >59 Persi stent reduc tion for 3 month s or more in an eGFR <60 mL/mi n/1.7 3 m2 defin es CKD. Patie nts with eGFR value s>/=6 0 mL/mi n/1.7 3 m2 may also have CKD if evide nce of persi stent protu niuri a is prese nt. Addit ional infor citlalli mago may be found at www.k doqi. org. Not Available [facility] [place] [address] [place], [address], 03/18/2020 13:13:08 03/17/20 20 03/17/2020 CK (crea tracie kinas e), total , serum creatine kinase 41 U/L 0-170 Not Available [facility] [place] [address] [place], [address], 03/18/2020 13:13:08 03/17/20 20 03/17/2020 lipid panel , serum trigylceride s 114 mg/dL 0-150 Not Available [facility] [place] [address] [place], [address], 03/18/2020 13:13:09 03/17/20 20 03/17/2020 lipid panel , serum cholesterol 201 mg/dL 0-200 high Not Available [facility] [place] [address] [place], [address], 03/18/2020 13:13:09 03/17/20 20 03/17/2020 lipid panel , serum uhdl 63 mg/dL 45-65 Not Available [facility] [place] [address] [place], [address], 03/18/2020 13:13:09 03/17/20 20 03/17/2020 lipid panel , serum LDL, calculated 115 mg/dL 0-100 high Not Available [facility] [place] [address] [place], [address], 03/18/2020 13:13:09 03/17/20 20 03/17/2020 lipid panel , serum LDL/HDL ratio 2 mg/dL 0-5 Not Available [place] [address] [place], [address], 03/18/2020 13:13:09 03/17/20 20 03/17/2020 lipid panel , serum VLDL 22.8 mg/dL 5.0-40 .0 Not Available [place] [address] [place], [address], 03/18/2020 13:13:09 03/17/20 20 03/17/2020 lipid panel , serum cholesterol/ HDL ratio 3.19 0.00-5 .00 Not Available [place] [address] [place], [address], 03/18/2020 13:13:09 09/01/19 20 08/31/2019 elect dayna medina am No observ ation record ed. [facility], [place] [id number] [facility] [address] [place], [place], [address], 09/01/2019 14:26:51 09/21/19 20 09/17/2019 bone densi ty No observ ation record ed. [email or web address] Not Available 2019 16:08:08 Result Notes None recorded. Problems Name Problem SNOMED Code Status Onset Date Resolution Date Notes Provider Name and Address Organization Details Recorded Time Hyperlipidemia 13311003 Active 2019 Ivet scott [facility] 0 14:45:30 Benign hypertension 35250492 Active 2019 Ivet scott [facility] 0 14:45:36 Problem Notes None recorded. Medical Equipment None Reported. Allergies No known drug allergies Medications Name Sig Start Date Stop Date Status Note LastModified by Organization Details LastModified Time cetirizin e 10 mg tablet 1 tab at 4 pm daily 2019 active Not Available Not Available Not Avai lable atorvasta tin 10 mg tablet TK 1 T PO Q DAY. STOP THE PRAVASTA TIN active Not Available Not Available No t Available azithromy loreta 250 mg tablet 03/17 completed Not Available Not Available Not Available amlodipin e 2.5 mg tablet TK 1 T PO QD 2019 active Not Available Not Available Not Palma lable pravastat in 10 mg tablet Take 1 tablet every day by oral route at bedtime. 03/23 completed Not Available Not Available Not Available fluticaso ne propionat e 50 mcg/actua tion nasal spray,kushal pension [place] 1 spray every day by intranas al route. active Not Available Not Available No t Available Boostrix Tdap 2.5 Lf unit-8 mcg-5 Lf/0.5 mL intramusc ular syringe 03/17 completed Not Available Not Available Not Available Prevnar 13 (PF) 0.5 mL intramusc ular syringe 03/17 completed [place] Not Available Not Available Not Available Shingrix (PF) 50 mcg/0.5 mL intramusc ular suspensio n, kit 03/17 completed Not Available Not Available Not Available Fluad 2018- 65yr up(PF)45 mcg(15 mcgx3)/0. 5 mL intramusc ular syringe 03/17 completed Not Available Not Available Not Available Vitals Date Recorded Systolic And Diastolic Provider Name and Address Organization Details Last Updated DateTime 08/31/2019 140/90 mm[Hg] Ivet Carrillo [facility] 08/31/2019 15:23:56 Date Recorded Body temperature Respiratory rate Body weight Heart rate Body mass index (BMI) Body height Provider Name and Address Organization Details Last Updated DateTime 0 98.2 [degF] 16 /min 44289.9 3 g 57 /min 25.6 kg/m2 157.48 cm Emi Felix [facility] 0 14:59:33 Date Recorded Body height Body mass index (BMI) Body weight Respiratory rate Body temperature Heart rate Systolic And Diastolic Provider Name and Address Organization Details Last Updated DateTime 0 157.48 cm 23.6 kg/m2 74718.4 2 g 16 /min 97.9 [degF] 53 /min 128/63 mm[Hg] Emelyn Rodriguez [facility] 0 13:05:27 Social History Question Answer Notes LastModified by Organizat ion Details LastModified Time Tobacco Smoking Status Never Smoker Ivet scott [facility] 08/31/2019 15:05:24 What Is Your Level Of Caffeine Consumption? Occasional [email or web address] Information not available 08/31/2019 How Much Tobacco Do You Chew? None [email or web address] Information not available 08/31/2019 In The 14 Days Before Symptom Onset, Have You Had Close Contact With A Laboratory-confirm ed COVID-19 While That Case Was Ill? No Information n ot available 03/17/2020 In The 14 Days Before Symptom Onset, Have You Had Close Contact With A Person Who Is Under Investigation For COVID-19 While That Person Was Ill? No Information not available 03/17/2020 Have You Been To An Area Known To Be High Risk For COVID-19? No Information not available 03/17/2020 Which Illicit Or Recreational Drugs Have You Used? None [email or web address] Information not available 08/31/2019 Hard Of Hearing Or Deaf In One Or Both Ears? No [email or web address] Information not available 08/31/2019 Legally Blind In One Or Both Eyes? No [email or web address] Information no t available 08/31/2019 Live Alone Or With Others? With Others [email or web address] Information not available 08/31/2019 Marital Status [email or web address] Informatio n not available 08/31/2019 What Was The Date Of Your Most Recent Tobacco Screening? 03/17/2020 Information not available 03/17/2020 How Much Tobacco Do You Smoke? No Information not available 03/17/2020 Sex: Unknown Functional Status Question Answer Note LastModified by Organizat ion Details LastModified Time What is your level of alcohol consumption? None [email or web address] Information not available 08/31/2019 Do you or have you ever used smokeless tobacco? Never used smokeless tobacco Information not available 03/17/2020 Are you currently employed? 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 Never used electronic cigarettes Information not available 03/17/2020 Mental Status None recorded. Family History Relationship Description Onset Age of this Age Resolved Age Notes LastModified by Organization Details LastModified Time Mother Malignant neoplasm of lung [email or web address] Not available 08/31 15:04:58 Medical History No medical history recorded. Gynecological HistoryNo gynecological history recorded. Obstetrics History GPAL:G 0 P 0 0 0 0 Immunizations Vaccine Type Date Status Note Provider Nam e and Address Organization Details Recorded Time Tdap 0 completed MD Bal Nunez [address], [place], [place], [address] [place] [address], [facility] 03/17/2020 13:43:50 Influenza, high-dose, trivalent, PF 0 completed MD Bal Nunez [address], [place] [address], [facility] 03/17/2020 13:44:20 Pneumococcal conjugate PCV 13 0 completed MD Bal Nunez [address], [place], [place], [address] [place] [address], [facility] 03/17/2020 13:44:48 zoster recombinant 0 completed MD Bal Nunez [address], [place], [place], [address] [place] [address], [facility] 03/17/2020 13:45:13 Past Encounters Encounter ID Performer Location Encounter Start Date Encounter Closed Date Diagnosis/Indication Diagnosis SNOMED-CT Code Diagnosis ICD10 Code Diagnosis IMO Codes Diagnosis Note [id number] IVET CARRILLO APN [facility], [facility] [address] [place] [id number] 0 08/31/2019 14:28:04 08/31/2019 16:01:10 Screening for malignant neoplasm of colon 871462605 Z12.11 unsure when or who performed last C scope Screening mammography 24 388714 Z12.31 never obtained charissa Screening for malignant neoplasm of cervix 311758131 Z12.4 can't remember obtaining pap - Screening for osteoporosis 561547150 Z13.820 Active or passive immunization 742733959 Z23 Hyperlipid emia screening 502341174 Z13.220 Body mass index 25-29 - overweight 839203605 Z68.25 Benign hypertension 1072 5009 I10 Congestion of nasal sinus 02890080 R09.81 Impacted cerumen 3386192 6 H61.23 Electrocar diogram abnormal 856551478 R94.31 [id number] Edwin Dhillon MD [facility], [facility] [address] [place] [address] 03/17/2020 12:13:52 03/17/2020 13:59:22 Allergy 146929098 T78.40XA Leukocytosis 424594859 D 72.829 Hyperlipidemia 66784682 E78.5 Adult heal th examination 021100197 Z00.00 Advance di rective discussed with patient 560230249 Z71.89 Body mass index 20-24 - normal 361540444 Z68.23 -- pt is in healthy weight category w/ a BMI of 23.6 (ideal is between 20-25) Benign hypertension 1072 5009 I10 -- last EKG done on 08/31/19 Impacted cerumen 7529118 6 H61.20 Health Concerns Section Related Observation LastModified by Organization Detai ls LastModified Time None Recorded Concern Status LastModified by Organization Details LastModified Time None Recorded Advance Directives Directive None Recorded Payers Insurance Date Sequence Insurance Name Policy Number Policy Sargent Covered Member ID Sargent Member ID Guarantor Name 07/12/2020 1 [place] [id number] Marija Omari [id number] Marija Omari 07/12/2020 1 [place] Marija Mendes Omari [id number] Marija Omari Notes Date Note Type Note Provider Name and Address Organization Details Recorded Time 08/31/2019 text/html New Patient Ivet Carrillo [facility] 08/31/2019 15:41:13 03/17/2020 text/html Pt comes in for BP and lipid managment. Except for allergies, she has no c/o. Patient denies any jaw or neck discomfort, left arm pain/left arm discomfort, chest discomfort/pain, diaphoresis, breathing symptoms/chest tightness, indigestion sx, n/v, any angina equivalent symptoms, etc. Edwin Dhillon MD [address], [place], [address], [facility] 03/17/2020 13:58:17 OBGyn Episode No OBEpisode recorded.
--- OUTSIDE RECORDS SUMMARY | 2025-06-08 15:08 | XMS_ITS | Clinical Summary ---
Author Organization [facility] [employer] Address [address] [place] [address] Care Team Providers Care Clarifier Name Role Phone Unavailable Primary Care Provider Unavailabl e Source Comments [facility] [employer]non-owned Affiliates and Associated Physician Practices is amultiple site organization consisting of ambulatory clinics and hospital sitesin [place], [place], [place] and [place]. This disclosure is being madepursuant to the Care Everywhere program and may not contain all information available regarding this patient. Last updated 18.[employer] Allergies No known active allergies Medications * Be aware that medications may not be up to date on this document. Alwaysverify current medications with the patient. No known medications Family History Medical History Relation Name Comments Cancer - Lung Mother Relation Name Status Comments Father Mother Social History Tobacco Use Types Packs/Day Years Used Date Smoking Tobacco: Passive Smo ke Exposure - Never Smoker Smokeless Tobacco: Never Comments:Mother Smoked. Comments Unknown Sex and Gender Information Value Date Recorded Sex Assigned at Not on file Legal Sex Female 10:46 AM SUPPLY PERSON Gender Identity Not on file Sexual Orientation Not on file Last Filed Vital Signs Vital Sign Reading Time Taken Comments Blood Pressure 136/82 10/25/2017 3:13 PM CDT Pulse 62 10/25/2017 3:13 PM CDT Temperature 36.8 C (98.2 F) 10/25/2017 3:13 PM CDT Respiratory Rate 16 10/25/2017 3:13 PM CDT Oxygen Saturation 96% 10/25/2017 3:13 PM CDT Inhaled Oxygen Concentration - - Weight 68.9 kg (152 lb) 10/25/2017 3:13 PM CDT Height 157.5 cm (5' 2) 10/25/2017 3:13 PM CDT Body Mass Index 27.8 10/25/2017 3:13 PM CDT Plan of Treatment Health Maintenance Due Date Last Done Comments BONE DENSITY TESTING 1936 DTAP/TDAP/TD VACCINES (1 - Tdap) 1955 PNEUMOCOCCAL VACCINE 50+ (1 of 1 - PCV) 1986 ZOSTER VACCINE (1 of 2) 1986 Respiratory Syncytial Virus (RSV) Vaccine Pt: or over 60 yrs (1 - 1-dose 75+ series) 2011 DEPRESSION SCREENING 08/05/2024 MEDICARE AWV CALENDAR YEAR 2024 COVID-19 VACCINE (1 - 2023-2 5 season) 2025 INFLUENZA VACCINE (#1) 2025 05/05/2013 HEPATITIS B VACCINE Aged Out No longe r eligible based on patient's age to complete this topic HIB VACCINE Aged Out No longer eligi ble based on patient's age to complete this topic HPV VACCINE Aged Out No longer eligi ble based on patient's age to complete this topic MENINGOCOCCAL (Group B) VACC INE SHARED DECISION-MAKING Aged Out No longer eligibl e based on patient's age to complete this topic MENINGOCOCCAL GROUPS A/C/Y/W VACCINE Aged Out No longer eligible b ased on patient's age to complete this topic Insurance ANTHE[place] AETNA MEDICARE ADV [facility] MED[facility]
--- OUTSIDE RECORDS SUMMARY | 2025-06-08 15:08 | XMS_ITS | Encounter Summary ---
Author Organization [facility] Address [address] [facility] [place] [address] Care Team Providers Care Senior Publications Specialist Name Role Phone Unavailable Primary Care Provider Unavailabl e Encounter Details Date Type Department Care Team (Late st Contact Info) Description 04/24/2023 Lab Requisition [facility] - DermPath Lab [address] [facility], [place] [address] Micheline Grover APRN-CNP [facility] DERMATOLOGY [address] [place] [phone] Neoplasm of uncertain behavior of skin Social History Tobacco Use Types Packs/Day Years Used Date Smoking Tobacco: Passive Smo ke Exposure - Never Smoker Smokeless Tobacco: Never Comments:Mother Smoked. 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 Gender Identity Not on file Sexual Orientation Not on file documented as of this encounter Plan of Treatment Not on file documented as of this encounter Procedures Procedure Name Priority Date/Time Associated Diagnosis Comments DERMATOPATHOLOGY Routine 04/24/2023 12:0 0 AM CDT Neoplasm of uncertain behavior of skin documented in this encounter Results * DERMATOPATHOLOGY (04/24/2023 12:00 AM CDT) Case Report Dermatopathology Report Case: [id number] Authorizing Provider: Micheline Grover, Collected: 04/24/2023 12:00 AM WATCH LEADER-DRY PAN OPERATOR Ordering Location: [facility] DermPath Lab Received: 04/25/2023 01:08 PM Pathologist: Marycruz Cruz MD Specimen: Skin, left medial cheek 1:19 PM CDT DERMATOPATHOLOGY LABORATORY Final Diagnosis Specimen A. 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 The specimen consists of a shave biopsy measuring 7x5x1 mm. Jar 0. 1:19 PM CDT DERMATOPATHOLOGY LABORATORY Microscopic Description Specimen A. SKIN, left medial cheek: Within the dermis there are nodular aggregates of basaloid cells associated with fibromyxoid stroma and epithelial-stromal clefts. At the advancing margin of the neoplasm, there are smaller angulated nests that infiltrate the dermis. 1:19 PM CDT DERMATOPATHOLOGY LABORATORY Disclaimer An external and internal positive and negative controls are appropriate for the histochemical, immunohistochemical and immunofluorescence stain(s) in this case (if any), except where stated explicitly. The performance characteristics of the stain(s) cited in this report were developed and its performance characteristic determined by the Dermatopathology Laboratory at [facility], directed by Dr. Nasim Zheng. These tests need not be, and therefore are not, approved by the [place] Food and Drug Administration. The tests are used for clinical purposes. Billing Codes Specimen Charges Stain Charges 51742 1 1:19 PM CDT DERMATOPATHOLOGY LABORATORY Embedded Images 1:19 PM CDT DERMATOPATHOLOGY LABORATORY Pathology/Cytolog y TISSUE SPECIMEN FROM SKIN / Unknown 04/24/2023 04/25/2023 1:08 PM CDT us Micheline Grover APRN-DRY PAN OPERATOR LAB - PATHOLOGY/CY TOLOGY ORDERABLES Final Result DERMATOPATHOLOGY LABORATORY [facility] - Department of Dermatology [address] Floor [place], [place] [id number] [place] [address] documented in this encounter Visit Diagnoses Diagnosis Neoplasm of uncertain behavior of skin documented in this encounter
--- NOTE | 2025-06-08 15:50 | ED.GENADULT ---
HPI - General Adult General Chief complaint: Head Injury Stated complaint: Fall, 4 days old Time Seen by Provider: 06/08/25 15:50 History of Present Illness HPI narrative: Patient is an 89 year presenting with daughter with concerns for an unwitnessed fall over the weekend. Daughter endorses she can see, has not been complaining of any pain, and appears to be at her baseline functionality. She has extensive dementia and is baseline alert and orientation x0. Patient is smiling and in good spirits. Related Data Allergies Allergy/AdvReac Type Severity Reaction Status Date / Time No Known Allergies Allergy Verified 06/08/25 12:57 Review of Systems Review of Systems: All systems reviewed & are unremarkable except as noted in HPI and below PMFSH Surgical History Surgical History History of cholecystectomy Family History Family History Mother Cancer of esophagus Stomach cancer Social History Social History Smoking status: Never smoker Alcohol intake: never Substance use: never Lack of Transportation: No Lack of Food: Never True Current Housing: I Have Housing Concerned About Future Housing: No Difficulty Paying Gas/Electric Bills: No Difficulty Paying for Meds: No Currently Unemployed: No Education: High School Diploma/GED Difficulty w/ Childcare or Family Care: No Living arrangements: with friend(s) Gender identity (if verbalized by the patient): Female Exam Narrative: GENERAL: Well-appearing, well-nourished, and in no acute distress. HEAD: Normocephalic, atraumatic. EYES: PERRLA and EOMI. Left sided periorbital bruising in initial stages of healing. Bruising is periorbital and then extends down the left side of her face to the left side of her mouth. Life sided diffuse conjunctival injection. ENT: Nares clear, no rhinorrhea or epistaxis. Mucous membranes moist. Oropharynx without tonsillar hypertrophy exudate or other lesions. Bilateral TMs pearly thompson non-bulging. No signs of septal hematoma. NECK: Supple. No adenopathy or masses. No carotid bruits or JVD CHEST: Clear to auscultation. No respiratory distress. No wheezes rales or rhonchi HEART: Regular rate and rhythm. No murmur heard. Normal peripheral pulses. ABDOMEN: Soft, nontender, nondistended, normal active bowel sounds. EXTREMITIES: Normal range of motion. No edema. SKIN: Warm, dry, no rash. NEURO: No focal deficits. Baseline alert and oriented x0. 5/5 strength in upper and lower extremities. PSYCH: Baseline mood and affect Course Vital Signs Vital signs: Vital Signs Temperature 98.5 F 06/08/25 13:41 Pulse Rate 63 06/08/25 13:41 Respiratory Rate 18 06/08/25 13:41 Blood Pressure 138/78 06/08/25 13:41 Pulse Oximetry 100 06/08/25 13:41 Oxygen Delivery Room Air 06/08/25 13:41 Temperature 98.5 F 06/08/25 13:41 Pulse Rate 68 06/08/25 16:40 Respiratory Rate 20 06/08/25 16:40 Blood Pressure 154/96 H 06/08/25 16:40 Pulse Oximetry 99 06/08/25 16:40 Oxygen Delivery Room Air 06/08/25 16:40 Medical Decision Making MDM Narrative Medical decision making narrative: Patient is an 89 year presenting with her daughter/POA with concerns for an unwitnessed fall over the weekend. Daughter endorses the patient can see, has not been complaining of any pain, and appears to be at her baseline functionality. She has extensive dementia and is baseline alert and orientation x0. Patient is smiling and in good spirits. CT head demonstrates no acute intracranial findings and CT cervical spine demonstrates no acute fracture. Daughter is comfortable with d/c after negative scans. Advised to f/u closely with PCP to monitor healing and to return if anything changes. Medical Records Medical records reviewed: Yes I reviewed the external patient's medical records. Vital Signs Vital Signs: Vital Signs Temperature 98.5 F 06/08/25 13:41 Pulse Rate 63 06/08/25 13:41 Respiratory Rate 18 06/08/25 13:41 Blood Pressure 138/78 06/08/25 13:41 Pulse Oximetry 100 06/08/25 13:41 Oxygen Delivery Room Air 06/08/25 13:41 Temperature 98.5 F 06/08/25 13:41 Pulse Rate 68 06/08/25 16:40 Respiratory Rate 20 06/08/25 16:40 Blood Pressure 154/96 H 06/08/25 16:40 Pulse Oximetry 99 06/08/25 16:40 Oxygen Delivery Room Air 06/08/25 16:40 Lab Data Lab results reviewed: Yes I reviewed the patient's lab results. Imaging Data Attestation: I personally reviewed and interpreted this imaging study as follows: Radiologist's impression: ITS Impressions Cervical Spine CT 06/08/25 14:24 IMPRESSION: HEAD: 1. No acute intracranial findings. C-SPINE: 1. No acute fracture. Head CT 06/08/25 14:24 IMPRESSION: HEAD: 1. No acute intracranial findings. C-SPINE: 1. No acute fracture. Critical Care Time Critical Care Time Critical Care Time: No Discharge Plan Discharge Clinical Impression: Fall Patient Disposition: NH Long-Term/Asst Living Condition: Stable Instructions: Black Eye (ED) Additional Instructions: Patient's POA is in agreement with current treatment plan. All questions answered. Vital signs stable at time of discharge. Patient Language: Salvadorean Prescriptions: No Action donepezil 10 mg tablet 10 mg PO QHS Qty: 90 1RF losartan 50 mg tablet 50 mg PO DAILY Qty: 90 1RF Follow-up/Referrals: Pau Stinson DO [Primary Care Provider, [facility]]
[2025-06-08 16:40] VITALS: BP 154/96; PULSE 68; RESP 20; O2SAT 99
--- OUTSIDE RECORDS SUMMARY | 2025-06-08 17:01 | XMS_ITS | Clinical Summary ---
Author Organization [facility] [employer] Address [address] [place] [address] Care Team Providers Care Organizational Effectiveness Director Name Role Phone Unavailable Primary Care Provider Unavailabl e Source Comments [facility] [employer],non-owned Affiliates and Associated Physician Practices is amultiple site organization consisting of ambulatory clinics and hospital sitesin [place], [place], [place] and [place]. This disclosure is being madepursuant to the Care Everywhere program and may not contain all information available regarding this patient. 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
--- OUTSIDE RECORDS SUMMARY | 2025-06-08 17:01 | XMS_ITS | Encounter Summary ---
Author Organization [facility] Health Address [address] [facility] [place] [address] Care Team Providers Care Blow Down Helper Name Role Phone Unavailable Primary Care Provider Unavailabl e Encounter Details Date Type Department Care Team (Late st Contact Info) Description 04/24/2023 Lab Requisition [facility] - Derm[facility] Lab [address] [facility] [place] [address] Micheline Grover APRN-CNP [facility] DERMATOLOGY [address] [place] [phone] Neoplasm of uncertain behavior of skin Social History Tobacco Use Types Packs/Day Years Used Date Smoking Tobacco: Passive Smo ke Exposure - Never Smoker Smokeless Tobacco: Never Comments:Mother Smoked. 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 Gender Identity Not on file Sexual Orientation Not on file documented as of this encounter Plan of Treatment Not on file documented as of this encounter Procedures Procedure Name Priority Date/Time Associated Diagnosis Comments DERMATOPATHOLOGY Routine 04/24/2023 12:0 0 AM CDT Neoplasm of uncertain behavior of skin documented in this encounter Results * DERMATOPATHOLOGY (04/24/2023 12:00 AM CDT) Case Report Dermatopathology Report Case: [id number] Authorizing Provider: Micheline Grover, Collected: 04/24/2023 12:00 AM FILTER MACHINE OPERATOR-BILLET ASSEMBLER Ordering Location: [facility] DermPath Lab Received: 04/25/2023 01:08 PM Pathologist: [...] characteristic determined by the Dermatopathology Laboratory at [facility], directed by Dr. Nasim Zheng. These tests need not be, and therefore are not, approved by the [place] Food and Drug Administration. The tests are used for clinical purposes. Billing Codes Specimen Charges Stain Charges 87231 1 1:19 PM CDT DERMATOPATHOLOGY LABORATORY Embedded Images 1:19 PM CDT DERMATOPATHOLOGY LABORATORY Pathology/Cytolog y TISSUE SPECIMEN FROM SKIN / Unknown 04/24/2023 04/25/2023 1:08 PM CDT us Micheline Grover APRN-BILLET ASSEMBLER LAB - PATHOLOGY/CY TOLOGY ORDERABLES Final Result DERMATOPATHOLOGY LABORATORY [facility] - Department of Dermatology [address] Floor [place], [place] [id number] [place] [address] documented in this encounter Visit Diagnoses Diagnosis Neoplasm of uncertain behavior of skin documented in this encounter
== END 2025-06-08 16:48 ==
LOC: ANHED 16:41
PROVIDERS: PCP Family Medicine
DX: S00.12XA Contusion of left eyelid and periocular area, initial encounter (principal); F03.90 Unspecified dementia, unspecified severity, without behavioral disturbance, psychotic disturbance, mood disturbance, and anxiety; Z90.49 Acquired absence of other specified parts of digestive tract; W19.XXXA Unspecified fall, initial encounter
CPT/HCPCS: 70450; 72125; 99284